=== PATIENT | female | born 1955 | race Hispanic/Latino ===

== ENCOUNTER 2019-09-16 16:49 | Emergency (ER) | payer MEDICARE ==
[2019-09-16 17:29] LABS: Basophils # (Auto) 0.1 K/mm3 (0.0-0.1); Eosinophils # (Auto) 0.5 K/mm3 (0.0-0.4); Eosinophils % (Auto) 6.1 % (0.0-4.3); Lymphocytes # (Auto) 1.4 K/mm3 (1.2-5.4); Lymphocytes % (Auto) 17.4 % (13.4-35.0); Mean Corpuscular HGB Conc 36 % (30-34); Mean Corpuscular Volume 93 fl (79-97); Monocytes # (Auto) 0.6 K/mm3 (0.0-0.8); Monocytes % (Auto) 7.4 % (0.0-7.3); Platelet Count 260 K/mm3 (140-440); Red Blood Count 4.47 M/mm3 (3.65-5.03); Red Cell Distribution Width 11.9 % (13.2-15.2)
[2019-09-16 17:31] LABS: Hematocrit 41.5 % (30.3-42.9); Hemoglobin 14.9 gm/dl (10.1-14.3)
--- NOTE | 2019-09-16 17:38 | XRay Report ---
CHEST 2 VIEWS INDICATION / CLINICAL INFORMATION: Chest Pain. COMPARISON: None available. FINDINGS: SUPPORT DEVICES: None. HEART / MEDIASTINUM: No significant abnormality. LUNGS / PLEURA: No significant pulmonary or pleural abnormality. No pneumothorax. ADDITIONAL FINDINGS: No significant additional findings. IMPRESSION: 1. No acute findings. Signer Name: Lenin Valdez MD Signed: 09/16/2019 5:34 PM Workstation Name: [id number]
[2019-09-16 17:48] LABS: BUN/Creatinine Ratio 22; Blood Urea Nitrogen 13 mg/dL (7-17); Calcium 8.9 mg/dL (8.4-10.2); Hemolysis Index 14
[2019-09-16] MEDS ORDERED: ALBUTEROL 2.5 MG/3 ML NEBU IH ONE (18:19)
[2019-09-16] MEDS ORDERED: IPRATROPIUM 0.02% NEBU 2.5 ML IH ONE (18:19)
[2019-09-16] MEDS ORDERED: predniSONE 20 MG TAB PO ONE (18:20)
--- NOTE | 2019-09-16 21:21 | Emergency Department Report ---
- General Chief Complaint: Dyspnea/Respdistress Stated Complaint: ASTHMA Time Seen by Provider: 09/16/19 18:18 Source: patient Mode of arrival: Ambulatory Limitations: No Limitations - History of Present Illness Initial Comments: Patient is a 64-year-old female who is presenting with cough and congestion for the past 2 days. Patient is a productive cough which is produ ctive of yellow-brown sputum. Patient also states she has a mild headache and her sinuses as well. Patient states the cough is accompanied with some chest tightness. Patient denies nausea vomiting fevers chills at this time. Severity scale (0 -10): 3 - Related Data Previous Rx's Medication Instructions Recorded Last Taken Type ALBUTEROL Inhaler (OR & NICU) 2 puff IH QID PRN #1 inhalation 09/16/19 Unknown Rx [ProAir HFA Inhaler] Azithromycin [Zithromax Z-PAMELA] 250 mg PO DAILY #6 tablet 09/16/19 Unknown Rx Benzonatate [Tessalon Perles] 100 mg PO Q8HR #10 capsule 09/16/19 Unknown Rx Fluticasone [Flonase] 1 spray NS QDAY #1 bottle 09/16/19 Unknown Rx predniSONE [Deltasone] 10 mg PO .TAPER #21 tab 09/16/19 Unknown Rx Allergies Allergy/AdvReac Type Severity Reaction Status Date / Time cephalexin [From Keflex] Allergy Swelling Verified 09/16/19 16:52 iodine Allergy Hives Verified 09/16/19 16:52 prochlorperazine Allergy Unknown Verified 09/16/19 16:52 [From Compazine] ED Review of Systems ROS: Stated complaint: ASTHMA Other details as noted in HPI Comment: All other systems reviewed and negative ED Past Medical Hx - Past Medical History Previous Medical History?: Yes Hx Diabetes: Yes Hx Asthma: Yes Hx COPD: Yes Additional medical history: occiptal stroke - Surgical History Past Surgical History?: Yes Hx Cholecystectomy: Yes Hx Appendectomy: Yes - Social History Smoking Status: Never Smoker Substance Use Type: None - Medications Home Medications: Home Medications Medication Instructions Recorded Confirmed Last Taken Type ALBUTEROL Inhaler (OR & NICU) 2 puff IH QID PRN #1 inhalation 09/16/19 Unknown Rx [ProAir HFA Inhaler] Azithromycin [Zithromax Z-PAMELA] 250 mg PO DAILY #6 tablet 09/16/19 Unknown Rx Benzonatate [Tessalon Perles] 100 mg PO Q8HR #10 capsule 09/16/19 Unknown Rx Fluticasone [Flonase] 1 spray NS QDAY #1 bottle 09/16/19 Unknown Rx predniSONE [Deltasone] 10 mg PO .TAPER #21 tab 09/16/19 Unknown Rx ED Physical Exam - General Limitations: No Limitations General appearance: alert, in no apparent distress - Head Head exam: Present: atraumatic, normocephalic - Eye Eye exam: Present: normal appearance, PERRL, EOMI - ENT ENT exam: Present: mucous membranes moist - Neck Neck exam: Present: normal inspection - Respiratory Respiratory exam: Present: normal lung sounds bilaterally. Absent: respiratory distress, wheezes (does have a bronchitic cough.), rales, rhonchi, stridor - Cardiovascular Cardiovascular Exam: Present: regular rate, normal rhythm. Absent: systolic murmur, diastolic murmur, rubs, gallop - GI/Abdominal GI/Abdominal exam: Present: soft, normal bowel sounds - Extremities Exam Extremities exam: Present: normal inspection - Back Exam Back exam: Present: normal inspection - Neurological Exam Neurological exam: Present: alert, oriented X3 - Psychiatric Psychiatric exam: Present: normal affect, normal mood - Skin Skin exam: Present: warm, dry, intact, normal color. Absent: rash ED Course Vital Signs 09/16/19 09/16/19 09/16/19 16:52 18:00 19:37 Temperature 97.9 F Pulse Rate 102 H 104 H Pulse Rate [ 98 H Bilateral] Respiratory 24 18 Rate Respiratory 15 Rate [Bilateral ] Blood Pressure 165/80 Blood Pressure 127/67 [Left] O2 Sat by Pulse 98 97 Oximetry 09/16/19 20:44 Temperature Pulse Rate 107 H Pulse Rate [ Bilateral] Respiratory 22 Rate Respiratory Rate [Bilateral ] Blood Pressure Blood Pressure 123/51 [Left] O2 Sat by Pulse 94 Oximetry ED Medical Decision Making - Lab Data Result diagrams: 09/16/19 17:17 09/16/19 17:17 Lab Results 09/16/19 09/16/19 Range/Units 17:17 17:17 WBC 8.0 (4.5-11.0) K/mm3 RBC 4.47 (3.65-5.03) M/mm3 Hgb 14.9 H (10.1-14.3) gm/dl Hct 41.5 (30.3-42.9) % MCV 93 (79-97) fl MCH 33 H (28-32) pg MCHC 36 H (30-34) % RDW 11.9 L (13.2-15.2) % Plt Count 260 (140-440) K/mm3 Lymph % (Auto) 17.4 (13.4-35.0) % Benton % (Auto) 7.4 H (0.0-7.3) % Eos % (Auto) 6.1 H (0.0-4.3) % Baso % (Auto) 1.0 (0.0-1.8) % Lymph # 1.4 (1.2-5.4) K/mm3 Benton # 0.6 (0.0-0.8) K/mm3 Eos # 0.5 H (0.0-0.4) K/mm3 Baso # 0.1 (0.0-0.1) K/mm3 Seg Neutrophils % 68.1 (40.0-70.0) % Seg Neutrophils # 5.4 (1.8-7.7) K/mm3 Sodium 135 L (137-145) mmol/L Potassium 4.6 (3.6-5.0) mmol/L Chloride 101.2 (98-107) mmol/L Carbon Dioxide 23 (22-30) mmol/L Anion Gap 15 mmol/L BUN 13 (7-17) mg/dL Creatinine 0.6 L (0.7-1.2) mg/dL Estimated GFR > 60 ml/min BUN/Creatinine Ratio 22 % Glucose 256 H (65-100) mg/dL Calcium 8.9 (8.4-10.2) mg/dL Troponin T < 0.010 (0.00-0.029) ng/mL - EKG Data -: EKG Interpreted by Ma EKG shows normal: sinus rhythm, axis, intervals, QRS complexes, ST-T waves Rate: normal - EKG Data Interpretation: normal EKG - Radiology Data CHEST 2 VIEWS INDICATION / CLINICAL INFORMATION: Chest Pain. COMPARISON: None available. FINDINGS: SUPPORT DEVICES: None. HEART / MEDIASTINUM: No significant abnormality. LUNGS / PLEURA: No significant pulmonary or pleural abnormality. No pneumothorax. ADDITIONAL FINDINGS: No significant additional findings. IMPRESSION: 1. No acute findings. Signer Name: Lenin Valdez MD Signed: 09/16/2019 5:34 PM Workstation Name: [id number] - Medical Decision Making Patient received a neb treatment stated that she felt as though she is moving air slightly better. Patient continued to have a bronchitic cough but her lung sounds are clear shallow breathing. Critical care attestation.: If time is entered above; I have spent that time in minutes in the direct care of this critically ill patient, excluding procedure time. ED Disposition Clinical Impression: Acute bronchitis Disposition: DC-01 TO HOME OR SELFCARE Is pt being admited?: No Does the pt Need Aspirin: No Condition: Stable Instructions: Acute Bronchitis (ED) Referrals: PRIMARY CAREMD [Primary Care Provider] - 3-5 Days Time of Disposition: 21:21
[2019-09-16 22:49] VITALS: BP 148/78
[2019-09-16] MEDS ORDERED: diphenhydrAMINE 25 MG CAP PO ONE (22:58)
== END 2019-09-16 22:47 | disposition home or self-care (01) ==
LOC: ED 16:49
DX: J20.9 Acute bronchitis, unspecified (principal); E11.9 Type 2 diabetes mellitus without complications; J44.9 Chronic obstructive pulmonary disease, unspecified; Z90.49 Acquired absence of other specified parts of digestive tract; Z79.899 Other long term (current) drug therapy; Z91.041 Radiographic dye allergy status; Z88.8 Allergy status to other drugs, medicaments and biological substances
CPT/HCPCS: 36415; 71046; 80048; 84484; 85025; 94640; 99284; J7512; 94644

== ENCOUNTER 2019-12-24 00:17 | Emergency (ER) | payer MEDICARE ==
--- NOTE | 2019-12-24 03:06 | XRay Report ---
LEFT FOOT 3 VIEWS INDICATION / CLINICAL INFORMATION: left foot pain COMPARISON: None available. FINDINGS: BONES / JOINT(S): No acute fracture or subluxation. No significant arthritis. SOFT TISSUES: No significant abnormality. ADDITIONAL FINDINGS: There is subjective osteopenia Signer Name: Nathen Puri MD Signed: 12/24/2019 3:01 AM Workstation Name: [id number]
--- NOTE | 2019-12-24 04:37 | Emergency Department Report ---
ED Extremity Problem HPI - General Chief complaint: Extremity Injury, Lower Stated complaint: FOOT INJURY Time Seen by Provider: 12/24/19 04:34 Source: patient Mode of arrival: Ambulatory Limitations: No Limitations - History of Present Illness Initial comments: 64-year-old female presents to ED with left foot pain. Patient states she has a 50 pound dog at home that stepped on her left foot, turned and pivoted on it, then ran away. She reports pain and swelling since. Patient is concerned about possible broken bone. She states she has broken both feet previously "just from walking." Patient is unsure if she has osteoporosis, states she has never been told. MD Complaint: extremity pain -: days(s) (2) Location: left, other (foot) -: Yes arthralgia Radiation: none Quality: aching Consistency: constant Improves with: immobilization Worsens with: weight bearing, walking, palpation Associated Symptoms: denies other symptoms - Related Data Previous Rx's Medication Instructions Recorded Last Taken Type Albuterol INH(or & Nicu Only) 2 puff IH QID PRN #1 inhalation 09/16/19 Unknown Rx [ProAir HFA Inhaler] Azithromycin [Zithromax Z-PAMELA] 250 mg PO DAILY #6 tablet 09/16/19 Unknown Rx Benzonatate [Tessalon Perles] 100 mg PO Q8HR #10 capsule 09/16/19 Unknown Rx Fluticasone [Flonase] 1 spray NS QDAY #1 bottle 09/16/19 Unknown Rx predniSONE [Deltasone] 10 mg PO .TAPER #21 tab 09/16/19 Unknown Rx Naproxen [Naprosyn] 500 mg PO BID #20 tablet 12/24/19 Unknown Rx Allergies Allergy/AdvReac Type Severity Reaction Status Date / Time cephalexin [From Keflex] Allergy Swelling Verified 09/16/19 16:52 iodine Allergy Hives Verified 09/16/19 16:52 prochlorperazine Allergy Unknown Verified 09/16/19 16:52 [From Compazine] ED Review of Systems ROS: Stated complaint: FOOT INJURY Other details as noted in HPI Comment: All other systems reviewed and negative Constitutional: denies: chills, fever Musculoskeletal: as per HPI ED Past Medical Hx - Past Medical History Previous Medical History?: Yes Hx Diabetes: Yes Hx Asthma: Yes Hx COPD: Yes Additional medical history: occiptal stroke - Surgical History Past Surgical History?: Yes Hx Cholecystectomy: Yes Hx Appendectomy: Yes - Social History Smoking Status: Unknown if ever smoked Substance Use Type: None - Medications Home Medications: Home Medications Medication Instructions Recorded Confirmed Last Taken Type Albuterol INH(or & Nicu Only) 2 puff IH QID PRN #1 inhalation 09/16/19 Unknown Rx [ProAir HFA Inhaler] Azithromycin [Zithromax Z-PAMELA] 250 mg PO DAILY #6 tablet 09/16/19 Unknown Rx Benzonatate [Tessalon Perles] 100 mg PO Q8HR #10 capsule 09/16/19 Unknown Rx Fluticasone [Flonase] 1 spray NS QDAY #1 bottle 09/16/19 Unknown Rx predniSONE [Deltasone] 10 mg PO .TAPER #21 tab 09/16/19 Unknown Rx Naproxen [Naprosyn] 500 mg PO BID #20 tablet 12/24/19 Unknown Rx ED Physical Exam - General Limitations: No Limitations General appearance: alert, in no apparent distress - Head Head exam: Present: atraumatic, normocephalic - Eye Eye exam: Present: normal appearance - ENT ENT exam: Present: mucous membranes moist - Neck Neck exam: Present: normal inspection - Respiratory Respiratory exam: Present: normal lung sounds bilaterally. Absent: respiratory distress - Cardiovascular Cardiovascular Exam: Present: regular rate, normal rhythm - GI/Abdominal GI/Abdominal exam: Absent: distended - Extremities Exam Extremities exam: Present: other (tenderness to the lateral aspect of the left foot, slight swelling present; no erythema/bruising) - Neurological Exam Neurological exam: Present: alert, oriented X3 - Psychiatric Psychiatric exam: Present: normal affect, normal mood - Skin Skin exam: Present: warm, dry, intact, normal color. Absent: rash ED Course Vital Signs 12/24/19 12/24/19 00:32 00:38 Temperature 98.7 F 98.7 F Pulse Rate 97 H 90 Respiratory 18 18 Rate Blood Pressure 150/64 150/64 O2 Sat by Pulse 96 96 Oximetry ED Medical Decision Making - Radiology Data Radiology results: report reviewed, image reviewed - Differential Diagnosis fracture, sprain Critical care attestation.: If time is entered above; I have spent that time in minutes in the direct care of this critically ill patient, excluding procedure time. ED Disposition Clinical Impression: Sprain of left foot Disposition: DC-01 TO HOME OR SELFCARE Is pt being admited?: No Condition: Stable Instructions: Foot Sprain (ED) Prescriptions: Naproxen [Naprosyn] 500 mg PO BID #20 tablet Referrals: SUZAN ANTUNEZ MD [Staff Physician] - 3-5 Days Time of Disposition: 04:38
[2019-12-24 04:55] VITALS: BP 150/62
== END 2019-12-24 04:53 | disposition home or self-care (01) ==
LOC: ED 00:17
DX: S90.32XA Contusion of left foot, initial encounter (principal); E11.9 Type 2 diabetes mellitus without complications; J44.9 Chronic obstructive pulmonary disease, unspecified; Z90.49 Acquired absence of other specified parts of digestive tract; Z79.899 Other long term (current) drug therapy; Z91.041 Radiographic dye allergy status; Z88.1 Allergy status to other antibiotic agents; X58.XXXA Exposure to other specified factors, initial encounter; Y93.89 Activity, other specified; Y92.89 Other specified places as the place of occurrence of the external cause; Y99.8 Other external cause status